=== PATIENT | female | born 1965 | race Caucasian/White ===

== ENCOUNTER 2018-04-04 17:58 | Observation (INO) ==
[2018-04-04] MEDS ORDERED: 0.9 % Sodium Chloride 1,000 ML IVC ONE (18:43)
[2018-04-04] MEDS ORDERED: Ketorolac 15 MG/ML VIAL IVP ONE (18:47)
--- NOTE | 2018-04-04 19:00 | Emergency Department Note ---
START Narrative - START START: 52-year-old female presents emergency Department with concerns of generalized malaise, cough, shortness of breath, fever and chest pain over the past couple days. Patient is concerned that her [id number] sick in the ICU with pneumonia. Patient reports generalized malaise, denies diarrhea, hematuria, hematochezia. Patient is tachycardic on the initial evaluation. We will obtain chest x-ray, laboratory evaluation and urinalysis. Patient care transferred to Dr. Rice pending further evaluation.
[2018-04-04] MEDS ORDERED: Ipratropium/Albuterol Neb 3 ML IH ONE (19:25)
[2018-04-04] MEDS ORDERED: Ipratropium/Albuterol Neb 3 ML ONE (19:26)
[2018-04-04 19:32] LABS: Bilirubin,Urine Negative (Negative); Blood,Urine Negative (Negative); Clarity,Urine Clear (Clear); Color,Urine Yellow (Yellow); Glucose,Urine (UA) Normal (Normal); Ketones,Urine Negative (Negative); Leukocyte Esterase,Urine Small (Negative); Nitrite,Urine Negative (Negative); Protein,Urine Negative (Neg-Trace); Specific Gravity,Urine < 1.005 (1.010-1.025); Urobilinogen,Urine Normal (Normal)
[2018-04-04 19:34] LABS: Bacteria,Urine None Seen per hpf (None-Few); Hyaline Casts,Urine None Seen per lpf (None-Few); Squamous Epithelial Cell,Urine Many per lpf (None-Few)
[2018-04-04 19:36] LABS: Basophils % 0.4 %; Eosinophils % 0.4 %; Hematocrit 34.9 % (35.3-44.9); Hemoglobin 11.4 g/dL (11.5-15.4); Immature Granulocytes % 0.3 % (0-4); Lymphocytes # 2.1 K/mcL (0.6-4.6); Mean Corpuscular HGB Conc 32.7 g/dL (31.6-35.5); Mean Corpuscular Hemoglobin 25.3 pg (28.0-33.3); Mean Corpuscular Volume 77.4 fL (83.0-100.0); Mean Platelet Volume 8.7 fL (9.4-12.4); Monocytes # 0.8 K/mcL (0.0-1.3); Monocytes % 8.3 %; Neutrophils # 6.8 K/mcL (1.6-8.9); Platelet Count 308 K/mcL (140-400); Red Blood Count 4.51 M/mcL (3.82-4.97); Red Cell Distribution Width 15.2 % (11.5-14.5); Segmented Neutrophils % 69.6 %
--- NOTE | 2018-04-04 19:45 | Emergency Department Note ---
Disposition Clinical Impression: Chest pain Qualifiers: Chest pain type: unspecified Qualified Code(s): R07.9 - Chest pain, unspecified Dyspnea Qualifiers: Dyspnea type: dyspnea on exertion Qualified Code(s): R06.09 - Other forms of dyspnea Disposition: Admitted As Inpatient Condition: Fair Referrals: NONE,PCP [Primary Care Provider] - Kaur Irving, SENIOR HEALTH CONSULTANT [Family Provider] - Forms: ED Satisfaction Letter, Work/School Release Time of Disposition: 00:09 Chest Pain HPI - General Chief Complaint: ED General Medical Stated Complaint: "Feels really bad" x4 days Time Seen by Provider: 04/04/18 18:08 Source: patient Limitations: no limitations Vital Signs Reviewed: Yes Nursing Notes Reviewed: Yes - History of Present Illness HPI Narrative: Patient is a 52-year-old female who presents to [facility] ED with a chief complaint of chest pain. States her symptoms started 4 days ago. States it is a sharp stabbing pain in the left side of her chest. She is also short of breath with this and complains of some mild wheezing. States she has been around her [id number] who has been sick with pneumonia. Denies any nausea, vomiting, abdominal pain, problems with urination or bowel movements. States she has had subjective fevers. States her chest pain and difficulty breathing are worse with exertion. Pt complaint: chest pain Onset (ago): day(s) (4) Pain Location: left chest Severity: moderate Severity scale (1-10): 8 Quality: tightness Pain Radiation: none Improves with: nothing Worsens with: exertion Associated symptoms: Reports: nausea, dyspnea. Denies: vomiting Treatments prior to arrival chest pain: none - Related Data Home Medications Medication Instructions Recorded Confirmed Cetirizine HCl [Zyrtec] 10 mg PO DAILY 04/04/18 04/04/18 Citalopram [CeleXA] 20 mg PO DAILY 04/04/18 04/04/18 Naproxen [Naprosyn] 500 mg PO BID 04/04/18 04/04/18 Omeprazole [PriLOSEC] 20 mg PO DAILY 04/04/18 04/04/18 Allergies Allergy/AdvReac Type Severity Reaction Status Date / Time acetaminophen [From Percocet] Allergy Nausea Verified 12/15/17 14:35 codeine Allergy Rash Verified 12/15/17 14:35 doxycycline Allergy Rash Verified 12/15/17 14:35 hydrocodone [From Vicodin] Allergy Nausea Verified 12/15/17 14:35 Oxycodone [From Percocet] Allergy Nausea Verified 12/15/17 14:35 Penicillins [PCN] Allergy Rash Verified 12/15/17 14:35 prednisone Allergy Hives Verified 12/15/17 14:35 red dye Allergy Redness of Verified 12/15/17 14:35 Skin Sulfa (Sulfonamide Allergy Rash Verified 12/15/17 14:35 Antibiotics) Iodinated Contrast- Oral and AdvReac Unconscious Verified 04/04/18 22:03 IV Dye All systems ED: reviewed and negative except as stated. Chest Pain PMH - Past Medical History Medical history: Reports: asthma, other Psychiatric history: Reports: anxiety FINISH SPECIALIST history: Reports: no FINISH SPECIALIST history - Social History Smoking Status: Never smoker Alcohol use: Reports: none Drug use: Reports: none Physical Exam - General Limitations: no limitations General appearance: alert, in no apparent distress - Head Head exam: atraumatic, normocephalic, normal inspection - Eye Eye exam: Present: EOMI - ENT ENT exam: normal exam, normal oropharynx, mucous membranes moist - Neck Neck exam: Present: normal inspection, full ROM, trachea midline - Chest Chest inspection: Present: normal inspection, symmetric chest wall rise - Respiratory Respiratory exam: Present: normal lung sounds bilaterally - Cardiovascular Cardiovascular exam: Present: normal rhythm, tachycardia - Abdominal Exam Abdominal exam: Present: soft, Non-Tender. Absent: tenderness, distention, guarding, rebound, rigidity - Extremities Exam Extremities exam: Present: normal inspection, full ROM. Absent: tenderness, pedal edema - Neurological Exam Neurological exam: Present: alert, oriented X3 - Psychiatric Psychiatric exam: Present: normal affect, normal mood - Skin Skin exam: Present: warm, dry, intact, normal color Course Course Narrative: Patient seen and examined. Chest pain for the last several days. Cardiopulmonary workup was ordered by the day team. D-dimer level was added since she seemed to have some degree of pleuritic chest pain. She had a mild wheeze in the left upper chest. DuoNeb ordered to see if this would help relieve her chest tightness. - Reevaluation(s) Reevaluation #1: Patient had no relief with the DuoNeb. Patient's lab work showed an elevated d-dimer. A CTA of the chest was initially ordered, however patient had an allergy to IV dye in the past where she became unresponsive even with premedication. Decision was made to cancel this and do a VQ scan instead. VQ scan resulted which showed low probability for home and her embolus. Aspirin and nitroglycerin ordered. We will admit for chest pain, ACS workup. I discussed with the hospitalist Dr. Reyes who has accepted patient for admission. Time: 00:04 Reevaluation #2: With patient's continued chest pain despite nitroglycerin, decision was made to give a dose of morphine. Time: 00:09 Vital Signs Temperature 99.4 F 04/04/18 18:02 Pulse Rate 115 04/04/18 18:02 Respiratory Rate 20 04/04/18 18:02 Blood Pressure 125/82 04/04/18 18:02 O2 Sat by Pulse Oximetry 93 04/04/18 18:02 Temperature 99.4 F 04/04/18 18:14 Pulse Rate 95 04/05/18 00:02 Respiratory Rate 20 04/05/18 00:02 Blood Pressure 122/81 04/05/18 00:02 O2 Sat by Pulse Oximetry 95 04/05/18 00:02 Oxygen Delivery Oxygen Delivery Nasal Cannula Chest Pain - Medical Records Medical records reviewed: Yes I reviewed the patient's medical records. - Lab Data Lab results reviewed: Yes I reviewed the patient's lab results. Result diagrams: 04/04/18 18:43 04/04/18 18:43 Lab Results 04/04/18 04/04/18 04/04/18 Range/Units 18:43 18:43 19:05 WBC 9.8 (4.3-11.1) K/mcL RBC 4.51 (3.82-4.97) M/mcL Hgb 11.4 L (11.5-15.4) g/dL Hct 34.9 L (35.3-44.9) % MCV 77.4 L (83.0-100.0) fL MCH 25.3 L (28.0-33.3) pg MCHC 32.7 (31.6-35.5) g/dL RDW 15.2 H (11.5-14.5) % Plt Count 308 (140-400) K/mcL MPV 8.7 L (9.4-12.4) fL Immature Gran % 0.3 (0-4) % Seg Neutrophils % 69.6 % Lymphocytes % 21.0 % Monocytes % 8.3 % Eosinophils % 0.4 % Basophils % 0.4 % Neutrophils # 6.8 (1.6-8.9) K/mcL Lymphocytes # 2.1 (0.6-4.6) K/mcL Monocytes # 0.8 (0.0-1.3) K/mcL Eosinophils # 0.0 (0.0-0.6) K/mcL Basophils # 0.0 (0.0-0.2) K/mcL D-Dimer (0-500) ng/mLFEU Sodium 136 (136-145) mEq/L Potassium 3.5 (3.5-5.1) mEq/L Chloride 101 (98-107) mEq/L Carbon Dioxide 27 (23-29) mEq/L BUN 11 (6-20) mg/dL Creatinine 0.64 (0.60-1.20) mg/dL Est GFR ( Amer) > 60 (> 60) Est GFR (Non-Af Amer) > 60 (> 60) BUN/Creatinine Ratio 17 (6-26) Glucose 114 H (70-105) mg/dL Calculated Osmolality 282 (280-300) Calcium 9.0 (8.6-10.3) mg/dL Total Bilirubin 0.6 (0.3-1.0) mg/dL Direct Bilirubin 0.1 (0.0-0.2) mg/dL Indirect Bilirubin 0.5 (0.0-1.2) mg/dL AST 16 (13-39) Units/L ALT 10 (7-52) Units/L Alkaline Phosphatase 91 (34-104) Units/L Troponin I < 0.03 (< 0.04) ng/mL Serum Total Protein 7.9 (6.4-8.9) g/dL Albumin 3.5 (3.5-5.7) g/dL Globulin 4.4 H (2.4-3.5) g/dL Albumin/Globulin Ratio 0.8 L (1.1-2.2) Urine Color Yellow (Yellow) Urine Clarity Clear (Clear) Urine pH 7.0 (5.0-8.0) pH Units Ur Specific [place] < 1.005 L (1.010-1.025) Urine Protein Negative (Neg-Trace) mg/dL Urine Glucose (UA) Normal (Normal) mg/dL Urine Ketones Negative (Negative) mg/dL Urine Blood Negative (Negative) Urine Nitrite Negative (Negative) Urine Bilirubin Negative (Negative) Urine Urobilinogen Normal (Normal) mg/dL Ur Leukocyte Esterase Small H (Negative) Urine Microscopic RBC 3-5 H (0-3) per hpf Urine Microscopic WBC 3-5 H (0-3) per hpf Ur Squamous Epith Cells Many H (None-Few) per lpf Urine Bacteria None Seen (None-Few) per hpf Hyaline Casts None Seen (None-Few) per lpf Ur Culture Indicated? NO. A (NO) 04/04/18 Range/Units 19:16 WBC (4.3-11.1) K/mcL RBC (3.82-4.97) M/mcL Hgb (11.5-15.4) g/dL Hct (35.3-44.9) % MCV (83.0-100.0) fL MCH (28.0-33.3) pg MCHC (31.6-35.5) g/dL RDW (11.5-14.5) % Plt Count (140-400) K/mcL MPV (9.4-12.4) fL Immature Gran % (0-4) % Seg Neutrophils % % Lymphocytes % % Monocytes % % Eosinophils % % Basophils % % Neutrophils # (1.6-8.9) K/mcL Lymphocytes # (0.6-4.6) K/mcL Monocytes # (0.0-1.3) K/mcL Eosinophils # (0.0-0.6) K/mcL Basophils # (0.0-0.2) K/mcL D-Dimer 1289 H (0-500) ng/mLFEU Sodium (136-145) mEq/L Potassium (3.5-5.1) mEq/L Chloride (98-107) mEq/L Carbon Dioxide (23-29) mEq/L BUN (6-20) mg/dL Creatinine (0.60-1.20) mg/dL Est GFR ( Amer) (> 60) Est GFR (Non-Af Amer) (> 60) BUN/Creatinine Ratio (6-26) Glucose (70-105) mg/dL Calculated Osmolality (280-300) Calcium (8.6-10.3) mg/dL Total Bilirubin (0.3-1.0) mg/dL Direct Bilirubin (0.0-0.2) mg/dL Indirect Bilirubin (0.0-1.2) mg/dL AST (13-39) Units/L ALT (7-52) Units/L Alkaline Phosphatase (34-104) Units/L Troponin I (< 0.04) ng/mL Serum Total Protein (6.4-8.9) g/dL Albumin (3.5-5.7) g/dL Globulin (2.4-3.5) g/dL Albumin/Globulin Ratio (1.1-2.2) Urine Color (Yellow) Urine Clarity (Clear) Urine pH (5.0-8.0) pH Units Ur Specific [place] (1.010-1.025) Urine Protein (Neg-Trace) mg/dL Urine Glucose (UA) (Normal) mg/dL Urine Ketones (Negative) mg/dL Urine Blood (Negative) Urine Nitrite (Negative) Urine Bilirubin (Negative) Urine Urobilinogen (Normal) mg/dL Ur Leukocyte Esterase (Negative) Urine Microscopic RBC (0-3) per hpf Urine Microscopic WBC (0-3) per hpf Ur Squamous Epith Cells (None-Few) per lpf Urine Bacteria (None-Few) per hpf Hyaline Casts (None-Few) per lpf Ur Culture Indicated? (NO) - Radiology Data Radiology results reviewed: Yes I reviewed the patient's radiology results. Chest X-Ray 04/04/18 18:47 IMPRESSION: No evidence for acute cardiopulmonary process. D/ / Mello Anne MD / Mello Anne MD Interpreting Provider: Mello Anne MD Pulmonary Perfusion Imaging 04/04/18 21:47 IMPRESSION: Low probability for pulmonary embolus. D/ / Jose Mir MD / Jose Mir MD Interpreting Provider: Jose Mir MD - EKG Data EKG attestation: Yes I reviewed and interpreted this EKG. EKG results narrative: EKG done at 1832 shows sinus tachycardia with a rate of [address] elevation or depression. Normal axis. Q waves noted in lead 3. No prior EKG for comparison. Heart Score - Score History: Moderately Suspicious EKG: Non Specific repolarisation Disturbance Age: 45-65 Risk Factors: No risk factors known Troponin: Less than normal limit HEART Score Total: 3 Attestation Statement - Attestation Attestation: I, Ronni Rice DO, examined this patient [id number] and my medical decision-making was reviewed with Dr. Caridad Styles , Resident Physician. I agree with the documented findings, disposition and treatment plan as described except to the extent set forth below. Please see my progress notes for details.
[2018-04-04 19:50] LABS: Troponin I < 0.03 ng/mL (< 0.04)
[2018-04-04 19:53] LABS: Alanine Aminotransferase 10 Units/L (7-52); Albumin 3.5 g/dL (3.5-5.7); Albumin/Globulin Ratio 0.8 (1.1-2.2); Alkaline Phosphatase 91 Units/L (34-104); Aspartate Amino Transferase 16 Units/L (13-39); BUN/Creatinine Ratio 17 (6-26); Bilirubin,Direct 0.1 mg/dL (0.0-0.2); Bilirubin,Indirect 0.5 mg/dL (0.0-1.2); Bilirubin,Total 0.6 mg/dL (0.3-1.0); Blood Urea Nitrogen 11 mg/dL (6-20); Carbon Dioxide 27 mEq/L (23-29); Chloride 101 mEq/L (98-107); Globulin 4.4 g/dL (2.4-3.5); Glucose 114 mg/dL (70-105); Osmolality,Calculated 282 (280-300); Potassium 3.5 mEq/L (3.5-5.1); Sodium 136 mEq/L (136-145); Total Protein 7.9 g/dL (6.4-8.9); eGFR For Non-African Americans > 60 (> 60)
--- NOTE | 2018-04-04 20:14 | Emergency Department Note ---
Disposition Clinical Impression: Chest pain Qualifiers: Chest pain type: unspecified Qualified Code(s): R07.9 - Chest pain, unspecified Dyspnea Qualifiers: Dyspnea type: dyspnea on exertion Qualified Code(s): R06.09 - Other forms of dyspnea Disposition: Admitted As Inpatient Condition: Fair Time of Disposition: 01:31 General Adult HPI - General Chief complaint: ED General Medical Stated complaint: "Feels really bad" x4 days Time Seen by Provider: 04/04/18 18:08 Source: patient Limitations: no limitations - History of Present Illness Pain Scale: 8 - Related Data Home Medications Medication Instructions Recorded Confirmed Cetirizine HCl [Zyrtec] 10 mg PO DAILY 04/04/18 04/04/18 Citalopram [CeleXA] 20 mg PO DAILY 04/04/18 04/04/18 Naproxen [Naprosyn] 500 mg PO BID 04/04/18 04/04/18 Omeprazole [PriLOSEC] 20 mg PO DAILY 04/04/18 04/04/18 Allergies Allergy/AdvReac Type Severity Reaction Status Date / Time acetaminophen [From Percocet] Allergy Nausea Verified 12/15/17 14:35 codeine Allergy Rash Verified 12/15/17 14:35 doxycycline Allergy Rash Verified 12/15/17 14:35 hydrocodone [From Vicodin] Allergy Nausea Verified 12/15/17 14:35 Oxycodone [From Percocet] Allergy Nausea Verified 12/15/17 14:35 Penicillins [PCN] Allergy Rash Verified 12/15/17 14:35 prednisone Allergy Hives Verified 12/15/17 14:35 red dye Allergy Redness of Verified 12/15/17 14:35 Skin Sulfa (Sulfonamide Allergy Rash Verified 12/15/17 14:35 Antibiotics) Iodinated Contrast- Oral and AdvReac Unconscious Verified 04/04/18 22:03 IV Dye Past Medical History - Past Medical History Medical history: Reports: asthma, other Psychiatric history: Reports: anxiety BRANCH MECHANIC history: Reports: no BRANCH MECHANIC history - Social History Smoking Status: Never smoker Smokeless Tobacco Status: No Alcohol use: Reports: none Drug use: Reports: none Physical Exam - General Limitations: no limitations General appearance: alert, in no apparent distress Course Vital Signs Temperature 99.4 F 04/04/18 18:02 Pulse Rate 115 04/04/18 18:02 Respiratory Rate 20 04/04/18 18:02 Blood Pressure 125/82 04/04/18 18:02 O2 Sat by Pulse Oximetry 93 04/04/18 18:02 Temperature 99.6 F 04/05/18 01:08 Pulse Rate 89 04/05/18 01:08 Respiratory Rate 20 04/05/18 01:08 Blood Pressure 120/75 04/05/18 01:08 O2 Sat by Pulse Oximetry 94 04/05/18 01:08 Oxygen Delivery Oxygen Delivery Nasal Cannula Medical Decision Making - Lab Data Result diagrams: 04/04/18 18:43 04/04/18 18:43 Lab Results 04/04/18 04/04/18 04/04/18 Range/Units 18:43 18:43 19:05 WBC 9.8 (4.3-11.1) K/mcL RBC 4.51 (3.82-4.97) M/mcL Hgb 11.4 L (11.5-15.4) g/dL Hct 34.9 L (35.3-44.9) % MCV 77.4 L (83.0-100.0) fL MCH 25.3 L (28.0-33.3) pg MCHC 32.7 (31.6-35.5) g/dL RDW 15.2 H (11.5-14.5) % Plt Count 308 (140-400) K/mcL MPV 8.7 L (9.4-12.4) fL Immature Gran % 0.3 (0-4) % Seg Neutrophils % 69.6 % Lymphocytes % 21.0 % Monocytes % 8.3 % Eosinophils % 0.4 % Basophils % 0.4 % Neutrophils # 6.8 (1.6-8.9) K/mcL Lymphocytes # 2.1 (0.6-4.6) K/mcL Monocytes # 0.8 (0.0-1.3) K/mcL Eosinophils # 0.0 (0.0-0.6) K/mcL Basophils # 0.0 (0.0-0.2) K/mcL D-Dimer (0-500) ng/mLFEU Sodium 136 (136-145) mEq/L Potassium 3.5 (3.5-5.1) mEq/L Chloride 101 (98-107) mEq/L Carbon Dioxide 27 (23-29) mEq/L BUN 11 (6-20) mg/dL Creatinine 0.64 (0.60-1.20) mg/dL Est GFR ( Amer) > 60 (> 60) Est GFR (Non-Af Amer) > 60 (> 60) BUN/Creatinine Ratio 17 (6-26) Glucose 114 H (70-105) mg/dL Calculated Osmolality 282 (280-300) Calcium 9.0 (8.6-10.3) mg/dL Total Bilirubin 0.6 (0.3-1.0) mg/dL Direct Bilirubin 0.1 (0.0-0.2) mg/dL Indirect Bilirubin 0.5 (0.0-1.2) mg/dL AST 16 (13-39) Units/L ALT 10 (7-52) Units/L Alkaline Phosphatase 91 (34-104) Units/L Troponin I < 0.03 (< 0.04) ng/mL Serum Total Protein 7.9 (6.4-8.9) g/dL Albumin 3.5 (3.5-5.7) g/dL Globulin 4.4 H (2.4-3.5) g/dL Albumin/Globulin Ratio 0.8 L (1.1-2.2) Urine Color Yellow (Yellow) Urine Clarity Clear (Clear) Urine pH 7.0 (5.0-8.0) pH Units Ur Specific [place] < 1.005 L (1.010-1.025) Urine Protein Negative (Neg-Trace) mg/dL Urine Glucose (UA) Normal (Normal) mg/dL Urine Ketones Negative (Negative) mg/dL Urine Blood Negative (Negative) Urine Nitrite Negative (Negative) Urine Bilirubin Negative (Negative) Urine Urobilinogen Normal (Normal) mg/dL Ur Leukocyte Esterase Small H (Negative) Urine Microscopic RBC 3-5 H (0-3) per hpf Urine Microscopic WBC 3-5 H (0-3) per hpf Ur Squamous Epith Cells Many H (None-Few) per lpf Urine Bacteria None Seen (None-Few) per hpf Hyaline Casts None Seen (None-Few) per lpf Ur Culture Indicated? NO. A (NO) 04/04/18 Range/Units 19:16 WBC (4.3-11.1) K/mcL RBC (3.82-4.97) M/mcL Hgb (11.5-15.4) g/dL Hct (35.3-44.9) % MCV (83.0-100.0) fL MCH (28.0-33.3) pg MCHC (31.6-35.5) g/dL RDW (11.5-14.5) % Plt Count (140-400) K/mcL MPV (9.4-12.4) fL Immature Gran % (0-4) % Seg Neutrophils % % Lymphocytes % % Monocytes % % Eosinophils % % Basophils % % Neutrophils # (1.6-8.9) K/mcL Lymphocytes # (0.6-4.6) K/mcL Monocytes # (0.0-1.3) K/mcL Eosinophils # (0.0-0.6) K/mcL Basophils # (0.0-0.2) K/mcL D-Dimer 1289 H (0-500) ng/mLFEU Sodium (136-145) mEq/L Potassium (3.5-5.1) mEq/L Chloride (98-107) mEq/L Carbon Dioxide (23-29) mEq/L BUN (6-20) mg/dL Creatinine (0.60-1.20) mg/dL Est GFR ( Amer) (> 60) Est GFR (Non-Af Amer) (> 60) BUN/Creatinine Ratio (6-26) Glucose (70-105) mg/dL Calculated Osmolality (280-300) Calcium (8.6-10.3) mg/dL Total Bilirubin (0.3-1.0) mg/dL Direct Bilirubin (0.0-0.2) mg/dL Indirect Bilirubin (0.0-1.2) mg/dL AST (13-39) Units/L ALT (7-52) Units/L Alkaline Phosphatase (34-104) Units/L Troponin I (< 0.04) ng/mL Serum Total Protein (6.4-8.9) g/dL Albumin (3.5-5.7) g/dL Globulin (2.4-3.5) g/dL Albumin/Globulin Ratio (1.1-2.2) Urine Color (Yellow) Urine Clarity (Clear) Urine pH (5.0-8.0) pH Units Ur Specific [place] (1.010-1.025) Urine Protein (Neg-Trace) mg/dL Urine Glucose (UA) (Normal) mg/dL Urine Ketones (Negative) mg/dL Urine Blood (Negative) Urine Nitrite (Negative) Urine Bilirubin (Negative) Urine Urobilinogen (Normal) mg/dL Ur Leukocyte Esterase (Negative) Urine Microscopic RBC (0-3) per hpf Urine Microscopic WBC (0-3) per hpf Ur Squamous Epith Cells (None-Few) per lpf Urine Bacteria (None-Few) per hpf Hyaline Casts (None-Few) per lpf Ur Culture Indicated? (NO) Attestation Statement - Attestation Attestation: I, Ronni Rice DO, examined this patient [id number] and my medical decision-making was reviewed with Caridad Styles DO , Resident Physician. I agree with the documented findings, disposition and treatment plan as described except to the extent set forth below. Please see my progress notes for details. 52-year-old female presents emergency room with chest tightness and difficulty breathing over the last 4 days. Patient has no specific cardiac history. Vital signs on presentation were stable. Patient has a history of asthma but does not have any described productive cough or fevers. Currently she is denying headache vision changes nausea vomiting or diarrhea fevers or chills. Her main complaint is chest tightness shortness of breath and intermittent pain with deep inspiration. Patient denies any history of blood clots dissection or aneurysm. She has not fallen or injured herself. She has not been on antibiotics recently. Patient is concerning for cardiac etiology versus pulmonary source this time. Chest x-ray is unremarkable this was ordered and collected by the previous physicians. Patient also had screening labs including EKG troponin resulted in those were negative as well. Breathing treatments ordered by our nighttime physician and then a d-dimer will be added on. Patient will most every required admission secondary to cardiac versus pulmonary concerns no specific history. Patient has not had a stress test or echo performed within the last several years. She does not have any other risk factors outside of what she describes as possible hypertension but no hyperlipidemia or diabetes. Disposition pending full workup and treatment course. Patient otherwise clinically stable. We will continue to monitor here in emergency room until admission process is completed. See detailed documentation the physical exam, medical intervention, medical decision-making and disposition the resident physician's note. 2044 Patient's d-dimer is elevated. Initial heart rate was 1:15. CT angiography will be completed to address any other potential pulmonary etiology. Patient was informed. Patient did have a contrast allergy which mandated VQ scan at this time. Admission process will be completed once the imaging modality is resulted. 2300 VQ scan is low probability for pulmonary emboli. Nitroglycerin did not help with the pain. Pain medication was given. Patient will be admitted for ACS rule out versus cardiopulmonary evaluation for possible pleuritic nature to the presentation. She has had symptoms for almost 48+ hours at this time and her troponin is negative so the idea cardiac ischemia is low on the differential at this point. We will admit the patient for definitive management. The hospitalist was contacted no other recommendations or concerns were noted. Patient has been admitted for definitive management. Patient left without any complications or medical issues this time.
[2018-04-04] MEDS ORDERED: Isovue-370 500 ML INFUS..BTL IV ONE (20:40)
[2018-04-04] MEDS ORDERED: Aspirin 325 MG TABLET PO ONE (23:44)
[2018-04-04] MEDS: Nitroglycerin 0.4 MG TAB.SUBL SL PRN (23:55)
[2018-04-05] MEDS: Nitroglycerin 0.4 MG TAB.SUBL SL PRN (00:03)
[2018-04-05] MEDS ORDERED: *HR* Morphine 2 MG/ML SYRINGE IVP ONE (00:05)
[2018-04-05] MEDS ORDERED: Ondansetron 4 MG/2 ML VIAL IVP ONE (00:06)
--- NOTE | 2018-04-05 01:54 | Internal Med History&Physical ---
Date of Encounter: 04/05/18 Time of Encounter: 01:45 Internal Medicine - H&P: HPI Chief complaint: chest pain Admitted From: Home Plans for Post Hospital Care: Home History of present illness: Ms. Kilpatrick is a 52 year old woman who reports a past medical history of asthma alone presenting to the ER who the complaint of left sided chest pain pain for which in the ER she was evaluated, given multiple analgesics with relief only after 4mg of morphine, and seen to have an elevated d-dimer for which reason a VQ scan was ordered given a reported allergy to contrast. This was not suggestive of acute PE.She was admitted for further observation. On my assessment, she is seen laying comfortably in bed. She denies any other comorbidities other than asthma and reports taking citalopram for depression and anxiety. She also reports a chronic pain syndrome due to arthritis. She states that 4 days ago she had started having generalized aches and pains, feeling feverish with some chills and a dry cough and sore throat. She also had left-sided chest tenderness at the time however it persisted over the course of days with highest severity yesterday fo which reason she sought medical attention. She notes that the pain was worsened with deep breathing. She denies abdominal pain, nausea and vomiting. She does not smoke or use illicit drugs. She denies a history of hypertension, diabetes, vascular disease and hyperlipidemia. Past Med Surg Social Fam HX - Past Medical History Medical history: asthma, other Additional medical history: chronic back pain, IBS. Psychiatric history: anxiety - Past Surgical History Surgical History: , cholecystectomy, hysterectomy, orthopedic, other Additional surgical history: ganglian cyst removal - Social History Smoking Status: Never smoker Smokeless Tobacco Status: No Alcohol use: none Drug use: none Internal Medicine - H&P: Meds Cetirizine HCl [Zyrtec] 10 mg PO DAILY 04/04/18 [History] Citalopram [CeleXA] 20 mg PO DAILY 04/04/18 [History] Naproxen [Naprosyn] 500 mg PO BID 04/04/18 [History] Omeprazole [PriLOSEC] 20 mg PO DAILY 04/04/18 [History] 3 Allergy/AdvReac Type Severity Reaction Status Date / Time acetaminophen [From Percocet] Allergy Nausea Verified 12/15/17 14:35 codeine Allergy Rash Verified 12/15/17 14:35 doxycycline Allergy Rash Verified 12/15/17 14:35 hydrocodone [From Vicodin] Allergy Nausea Verified 12/15/17 14:35 Oxycodone [From Percocet] Allergy Nausea Verified 12/15/17 14:35 Penicillins [PCN] Allergy Rash Verified 12/15/17 14:35 prednisone Allergy Hives Verified 12/15/17 14:35 red dye Allergy Redness of Verified 12/15/17 14:35 Skin Sulfa (Sulfonamide Allergy Rash Verified 12/15/17 14:35 Antibiotics) Iodinated Contrast- Oral and AdvReac Unconscious Verified 04/04/18 22:03 IV Dye All Systems PM: A 10-system review of systems was performed and is negative for pertinent findings except as documented above in the HPI. - Constitutional Vitals: Temp Pulse Resp BP Pulse Ox 99.6 F 89 20 120/75 94 04/05/18 01:08 04/05/18 01:08 04/05/18 01:08 04/05/18 01:08 04/05/18 01:08 Exam: Vitals: Reviewed General: Well-developed female lying comfortably in bed in no acute distress Skin: No ulcers or lesions. HEENT: Moist mucous membranes. No conjunctivae pallor. Neck: No lymphadenopathy. No JVD. No carotid bruits. No palpable thyroid. Chest: Normal thoracic expansion. Reproducible tenderness on palpation of her left anterior rib cage close to her sternum. Normal breath sounds. Clear to auscultation. Heart: Normal S1 & S2; rhythmic. No rubs or murmurs. Abdomen: Non-distended, soft and non-tender to palpation. No peritoneal reaction. Liver is normal in size. Spleen is not palpable. Extremities: No clubbing, cyanosis or edema. No calf tenderness. Normal distal pulses. Neurological: Awake, alert and oriented to person, place and time. No focal deficits. Psych: Affect appropriate. Internal Med - H&P Results - Labs CBC & Chem 7: 04/04/18 18:43 04/04/18 18:43 - Assessment and plan (1) Chest pain Current Visit: Yes Status: Acute Assessment and plan: The patient has a HEART score of 1 based on her age. She has no other risk factors, pain has been preent for 4 days which seems to have been part of a viral syndrome now having focused reproducible tenderness on palpation. Her EKG shows no signs suggestive of ischemia. This atypical chest pain is likely secondary to costochondritis based on these findings. -Will place on NSAIDs. -Monitor overnight and can be discharged in the morning with pain relief. -Should follow up with her PCP as an outpatient. Qualifiers: Chest pain type: intercostal pain Qualified Code(s): R07.82 - Intercostal pain (2) Asthma Current Visit: Yes Status: Chronic Assessment and plan: No signs of acute exacerbation at this time. Albuterol prn ordered. Qualifiers: Asthma severity: mild Asthma persistence: intermittent Asthma complication type: uncomplicated Qualified Code(s): J45.20 - Mild intermittent asthma, uncomplicated (3) Depression Current Visit: Yes Status: Chronic Assessment and plan: Appears stable. Will continue citalopram daily. Qualifiers: Depression Type: unspecified Qualified Code(s): F32.9 - Major depressive disorder, single episode, unspecified (4) Obesity (BMI 30.0-34.9) Current Visit: Yes Status: Chronic Assessment and plan: Education on therapeutic lifestyle changes given. (5) D-dimer, elevated Current Visit: Yes Status: Acute Assessment and plan: Unclear why it is elevated. PE has been ruled out based on the VQ scan findings. No clinical signs to suggest LE DVT. It is not a specific test and could be elevated for other reasons. (6) Anemia Current Visit: Yes Status: Chronic Assessment and plan: Seen to have a low MCV and MCH which is suggestive of iron deficiency. She reports no evidence of landry bleeding. -Will send iron studies. -Should have outpatient for screening colonoscopy if not already done based on her age. Qualifiers: Anemia type: unspecified type Qualified Code(s): D64.9 - Anemia, unspecified (7) DVT prophylaxis Current Visit: Yes Status: Acute Assessment and plan: Heparin SubQ ordered. - Time Spent With Patient Total time spent is greater than 50% in coordination of care (as documented) at patient's floor/unit and/or counseling patient: 25 - 35 minutes
[2018-04-05] MEDS: *HR* Heparin 5,000 UNIT/ML VIAL SQ SCH ×2 (05:01→17:12)
[2018-04-05 05:25] LABS: Immature Reticulocyte % 9.1 % (11.0-38.0); Retculocyte # 0.05 M/mcL (0.05-0.10); Reticulocyte % 1.1 % (1.6-2.8)
[2018-04-05 05:46] LABS: Troponin I < 0.03 ng/mL (< 0.04)
[2018-04-05 06:07] LABS: Ferritin 204 ng/mL (10-120); Iron < 10 mcg/dL (50-170); Transferrin 163 mg/dL (203-362)
[2018-04-05] MEDS: Loratadine 10 MG TABLET PO SCH (08:13)
--- NOTE | 2018-04-05 11:24 | Internal Med Progress Note ---
Hospitalist Progress Note - Encounter Date of Encounter: 04/05/18 Time of Encounter: 11:23 - Subjective Interval History: She has seen and examined at bedside. Patient expresses that she feels very weak. She is requiring oxygen supplementation at 2 L nasal cannula. Normally she is now any oxygen at home. She does have a cough with no sputum production she denies any weight gain or weight loss or swelling. - Exam Vitals: Temp Pulse Resp BP Pulse Ox 99.8 F H 97 15 113/73 91 04/05/18 06:36 04/05/18 06:36 04/05/18 06:36 04/05/18 06:36 04/05/18 06:36 Exam: Constitutional Constitutional: weight loss (reported 30 pound lose since last year), no chills , no fever(s), no night sweats - EENT Eyes: no change in vision, no discharge, no pain, no photophobia Ears: no ear discharge, no ear pain, no tinnitus Nose, mouth and throat: no dysphagia, no nasal discharge, no neck pain, no sore throat - Cardiovascular Cardiovascular ROS IM: no chest pain, no diaphoresis, no dyspnea, no lightheadedness, no palpitations, no syncope - Respiratory Respiratory: cough, crackles in the bases bilaterally, no dyspnea, no wheezing , no excessive phlegm production - Gastrointestinal Gastrointestinal: abdominal pain, nausea, vomiting, no diarrhea, no hematemesis , no hematochezia, no melena - Musculoskeletal Musculoskeletal ROS IM: no numbness, no tingling - Integumentary Integumentary IM: no rash, no unusual bruising - Neurological Neurological ROS: no confusion, no convulsions, no focal weakness, no numbness, no tingling, no tremor(s) - Hematologic/Lymphatic Hematologic/Lymphatic: no easy bruising - Assessment and Plan (1) Chest pain Current Visit: Yes Status: Acute Assessment and Plan: The patient has a HEART score of 1 based on her age. She has no other risk factors, pain has been preent for 4 days which seems to have been part of a viral syndrome now having focused reproducible tenderness on palpation. Her EKG shows no signs suggestive of ischemia. This atypical chest pain is likely secondary to costochondritis based on these findings. -Will continue NSAIDs. -Troponins are negative 3 -Patient does have some hypoxia we will check an echo (2) Asthma Current Visit: Yes Status: Chronic Assessment and Plan: No signs of acute exacerbation at this time.-No wheezing noted at this time Albuterol prn ordered. (3) Depression Current Visit: Yes Status: Chronic Assessment and Plan: Appears stable. Will continue citalopram daily. (4) DVT prophylaxis Current Visit: Yes Status: Acute Assessment and Plan: Heparin SubQ ordered. (5) Obesity (BMI 30.0-34.9) Current Visit: Yes Status: Chronic Assessment and Plan: Education on therapeutic lifestyle changes given. (6) D-dimer, elevated Current Visit: Yes Status: Acute Assessment and Plan: Unclear why it is elevated. PE has been ruled out based on the VQ scan findings. No clinical signs to suggest LE DVT. It is not a specific test and could be elevated for other reasons. (7) Anemia Current Visit: Yes Status: Chronic Assessment and Plan: Seen to have a low MCV and MCH which is suggestive of iron deficiency. She reports no evidence of landry bleeding. -Will send iron studies. -Should have outpatient for screening colonoscopy if not already done based on her age. -No bleeding noted (8) Hypoxia Current Visit: Yes Status: Acute Assessment and Plan: Patient requiring oxygen supplementation started dropping to 85% while on room air. She does not normally require oxygen at home We will do a walk test. VQ scan is negative for PE chest x-ray shows no acute process. She does have some crackles in the bases does not appear to be fluid overloaded we will check an echo. Continue with oxygen titrated to maintain SPO2 greater than 92%. We will check a BNP No wheezing noted - Time Spent with Patient Total time spent is greater than 50% in coordination of care (as documented) at patient's floor/unit and/or counseling patient: Internal Medicine: Result - Labs CBC & Chem 7: 04/04/18 18:43 04/04/18 18:43 Labs: Cardiac Enzymes 04/05/18 Range/Units 04:29 Troponin I < 0.03 (< 0.04) ng/mL - ABG Interpretation ABG results: PT/INR, D-dimer D-Dimer 1289 ng/mLFEU (0-500) H 04/04/18 19:16 Consult Discharge Plan - Plan Referrals: NONE,PCP [Primary Care Provider] - Kaur Irving, COMMUNITY ENGAGEMENT SPECIALIST [Family Provider] - (1) Chest pain Qualifiers: Chest pain type: intercostal pain Qualified Code(s): R07.82 - Intercostal pain (2) Asthma Qualifiers: Asthma severity: mild Asthma persistence: intermittent Asthma complication type: uncomplicated Qualified Code(s): J45.20 - Mild intermittent asthma, uncomplicated (3) Depression Qualifiers: Depression Type: unspecified Qualified Code(s): F32.9 - Major depressive disorder, single episode, unspecified (7) Anemia Qualifiers: Anemia type: unspecified type Qualified Code(s): D64.9 - Anemia, unspecified
--- NOTE | 2018-04-05 11:48 | Electrocardiograph Report ---
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
[2018-04-05 13:48] LABS: Basophils % 0.3 %; Eosinophils # 0.2 K/mcL (0.0-0.6); Eosinophils % 2.9 %; Hemoglobin 10.2 g/dL (11.5-15.4); Immature Granulocytes % 0.1 % (0-4); Lymphocytes # 1.6 K/mcL (0.6-4.6); Lymphocytes % 23.5 %; Mean Corpuscular HGB Conc 31.9 g/dL (31.6-35.5); Mean Corpuscular Hemoglobin 24.6 pg (28.0-33.3); Mean Corpuscular Volume 77.3 fL (83.0-100.0); Mean Platelet Volume 8.7 fL (9.4-12.4); Monocytes # 0.8 K/mcL (0.0-1.3); Monocytes % 11.6 %; Neutrophils # 4.3 K/mcL (1.6-8.9); Platelet Count 267 K/mcL (140-400); Red Blood Count 4.14 M/mcL (3.82-4.97); Red Cell Distribution Width 15.6 % (11.5-14.5); Segmented Neutrophils % 61.6 %
[2018-04-05 14:00] LABS: BUN/Creatinine Ratio 16 (6-26); Blood Urea Nitrogen 11 mg/dL (6-20); Calcium 8.8 mg/dL (8.6-10.3); Carbon Dioxide 29 mEq/L (23-29); Chloride 102 mEq/L (98-107); Glucose 137 mg/dL (70-105); Osmolality,Calculated 284 (280-300); Potassium 3.5 mEq/L (3.5-5.1); Sodium 136 mEq/L (136-145); eGFR For Non-African Americans > 60 (> 60)
--- NOTE | 2018-04-05 17:23 | Electrocardiograph Report ---
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
--- NOTE | 2018-04-05 17:24 | Electrocardiograph Report ---
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
[2018-04-06] MEDS: *HR* Heparin 5,000 UNIT/ML VIAL SQ SCH ×2 (05:38→17:05)
[2018-04-06] MEDS: Loratadine 10 MG TABLET PO SCH (09:52)
--- NOTE | 2018-04-06 11:11 | Internal Med Progress Note ---
Hospitalist Progress Note - Encounter Date of Encounter: 04/06/18 Time of Encounter: 11:11 - Subjective Interval History: She has seen and examined at bedside. She feels somewhat better. Cont to depend on 2 L of O2 will attempt to titrate - Exam Vitals: Temp Pulse Resp BP Pulse Ox 97.9 F 76 15 116/78 93 04/06/18 07:12 04/06/18 07:12 04/06/18 07:12 04/06/18 07:12 04/06/18 09:58 Exam: Constitutional Constitutional: weight loss (reported 30 pound lose since last year), no chills , no fever(s), no night sweats - EENT Eyes: no change in vision, no discharge, no pain, no photophobia Ears: no ear discharge, no ear pain, no tinnitus Nose, mouth and throat: no dysphagia, no nasal discharge, no neck pain, no sore throat - Cardiovascular Cardiovascular ROS IM: no chest pain, no diaphoresis, no dyspnea, no lightheadedness, no palpitations, no syncope - Respiratory Respiratory: cough, faint crackles , no dyspnea, no wheezing, no excessive phlegm production - Gastrointestinal Gastrointestinal: abdominal pain, nausea, vomiting, no diarrhea, no hematemesis , no hematochezia, no melena - Musculoskeletal Musculoskeletal ROS IM: no numbness, no tingling - Integumentary Integumentary IM: no rash, no unusual bruising - Neurological Neurological ROS: no confusion, no convulsions, no focal weakness, no numbness, no tingling, no tremor(s) - Hematologic/Lymphatic Hematologic/Lymphatic: no easy bruising - Assessment and Plan (1) Chest pain Current Visit: Yes Status: Acute Assessment and Plan: The patient has a HEART score of 1 based on her age. She has no other risk factors, pain has been preent for 4 days which seems to have been part of a viral syndrome now having focused reproducible tenderness on palpation. Her EKG shows no signs suggestive of ischemia. This atypical chest pain is likely secondary to costochondritis based on these findings. -Will continue NSAIDs. -Troponins are negative 3 -EKG oK (2) Asthma Current Visit: Yes Status: Chronic Assessment and Plan: Lung sounds with faint crackles very faint wheeze Albuterol prn ordered. Has been hypoxic maybe asthma flair will try steroid She is allergic to prednisone- discussed with pharmacy will try low dose decadron (3) Depression Current Visit: Yes Status: Chronic Assessment and Plan: Appears stable. Will continue citalopram daily. (4) DVT prophylaxis Current Visit: Yes Status: Acute Assessment and Plan: Heparin SubQ ordered. (5) Obesity (BMI 30.0-34.9) Current Visit: Yes Status: Chronic Assessment and Plan: Education on therapeutic lifestyle changes given. (6) D-dimer, elevated Current Visit: Yes Status: Acute Assessment and Plan: Unclear why it is elevated. PE has been ruled out based on the VQ scan findings. No clinical signs to suggest LE DVT. It is not a specific test and could be elevated for other reasons. (7) Anemia Current Visit: Yes Status: Chronic Assessment and Plan: Seen to have a low MCV and MCH which is suggestive of iron deficiency. She reports no evidence of landry bleeding- will cont to monitor -Should have outpatient for screening colonoscopy if not already done based on her age. -No bleeding noted (8) Hypoxia Current Visit: Yes Status: Acute Assessment and Plan: Patient requiring oxygen supplementation started dropping to 85% while on room air. She does not normally require oxygen at home We will do a walk test. VQ scan is negative for PE chest x-ray shows no acute process. She does have some crackles in the bases does not appear to be fluid overloaded we will check an echo. Continue with oxygen titrated to maintain SPO2 greater than 92%. We will check a BNP No wheezing noted - Time Spent with Patient Total time spent is greater than 50% in coordination of care (as documented) at patient's floor/unit and/or counseling patient: Internal Medicine: Result - Labs CBC & Chem 7: 04/05/18 13:05 04/05/18 13:05 Labs: Short CBC 04/05/18 Range/Units 13:05 WBC 7.0 (4.3-11.1) K/mcL Hgb 10.2 L (11.5-15.4) g/dL Hct 32.0 L (35.3-44.9) % Plt Count 267 (140-400) K/mcL Neutrophils # 4.3 (1.6-8.9) K/mcL BMP 04/05/18 13:05 Sodium 136 Potassium 3.5 Chloride 102 Carbon Dioxide 29 BUN 11 Creatinine 0.67 Glucose 137 H Calcium 8.8 - ABG Interpretation ABG results: PT/INR, D-dimer D-Dimer 1289 ng/mLFEU (0-500) H 04/04/18 19:16 - Impressions Impressions Echocardiogram 04/05/18 11:21 Impressions: LVEF 60%. Normal left ventricular diastolic function. Normal right ventricular structure and function. No significant valvular dysfunction. No pulmonary hypertension. Left Ventricular Wall Motion: Rest Echo Findings All wall segments showed normal motion. Findings: Study Quality * Technically adequate exam. ECG Findings * Normal sinus rhythm. Left Ventricle * LVEF 60%. * Normal LV chamber size, wall thickness and function. * Normal left ventricular diastolic function. Right Ventricle * Normal right ventricular structure and function. Left Atrium * Normal left atrial size. Right Atrium * Normal right atrial size. Mitral Valve * Normal mitral valve structure. * No mitral stenosis. * No mitral regurgitation. Aortic Valve * No aortic regurgitation. * Trileaflet aortic valve. * No aortic stenosis. Tricuspid Valve * Tricuspid valve not well visualized. * No tricuspid regurgitation. * Estimated RA pressure is 3 mmHg. Pulmonic Valve * Pulmonic valve is not well visualized. * No pulmonic stenosis. * No pulmonic regurgitation. Pulmonary Artery * Pulmonary artery not well visualized. Aorta * Normally sized aortic root. Pericardium * There is no pericardial effusion present. Interatrial Septum * No evidence of PFO by color Doppler. IVC * Normal IVC dimensions and inspiratory collapse. Consult Discharge Plan - Plan Referrals: Kaur Irving CNP [Family Provider] - Elvira Cole CNP [Advanced Practice Nurse] - 04/11/18 2:45 pm ( Hospital follow up) (1) Chest pain Qualifiers: Chest pain type: intercostal pain Qualified Code(s): R07.82 - Intercostal pain (2) Asthma Qualifiers: Asthma severity: mild Asthma persistence: intermittent Asthma complication type: uncomplicated Qualified Code(s): J45.20 - Mild intermittent asthma, uncomplicated (3) Depression Qualifiers: Depression Type: unspecified Qualified Code(s): F32.9 - Major depressive disorder, single episode, unspecified (7) Anemia Qualifiers: Anemia type: unspecified type Qualified Code(s): D64.9 - Anemia, unspecified
[2018-04-06 12:00] LABS: Adenovirus Not Detected (Not Detect); Bordetella Pertussis Not Detected (Not Detect); Chlamydophila pneumoniae Not Detected (Not Detect); Coronavirus 229E Not Detected (Not Detect); Coronavirus HKU1 Not Detected (Not Detect); Coronavirus NL63 Not Detected (Not Detect); Coronavirus OC43 Not Detected (Not Detect); Human Metapneumovirus Not Detected (Not Detect); Human Rhinovirus/Enterovirus Not Detected (Not Detect); Influenza A Subtype 2009 H1 Not Detected (Not Detect); Influenza A Untypeable Not Detected (Not Detect); Influenza B Not Detected (Not Detect); Mycoplasma pneumoniae Not Detected (Not Detect); Parainfluenza Virus 1 Not Detected (Not Detect); Parainfluenza Virus 2 Not Detected (Not Detect); Parainfluenza Virus 3 Not Detected (Not Detect); Parainfluenza Virus 4 Not Detected (Not Detect); Respiratory Syncytial Virus Not Detected (Not Detect)
[2018-04-07 05:14] LABS: Basophils % 0.2 %; Hematocrit 31.7 % (35.3-44.9); Hemoglobin 10.1 g/dL (11.5-15.4); Immature Granulocytes % 0.2 % (0-4); Lymphocytes # 1.2 K/mcL (0.6-4.6); Lymphocytes % 23.9 %; Mean Corpuscular HGB Conc 31.9 g/dL (31.6-35.5); Mean Corpuscular Hemoglobin 25.1 pg (28.0-33.3); Mean Corpuscular Volume 78.7 fL (83.0-100.0); Mean Platelet Volume 9.1 fL (9.4-12.4); Monocytes # 0.4 K/mcL (0.0-1.3); Monocytes % 8.2 %; Neutrophils # 3.4 K/mcL (1.6-8.9); Platelet Count 305 K/mcL (140-400); Red Blood Count 4.03 M/mcL (3.82-4.97); Red Cell Distribution Width 14.9 % (11.5-14.5); Segmented Neutrophils % 67.5 %
[2018-04-07] MEDS: *HR* Heparin 5,000 UNIT/ML VIAL SQ SCH ×2 (06:14→17:45)
[2018-04-07 07:20] LABS: BUN/Creatinine Ratio 26 (6-26); Blood Urea Nitrogen 16 mg/dL (6-20); Calcium 9.1 mg/dL (8.6-10.3); Carbon Dioxide 24 mEq/L (23-29); Chloride 104 mEq/L (98-107); Glucose 188 mg/dL (70-105); Osmolality,Calculated 290 (280-300); Potassium 4.4 mEq/L (3.5-5.1); Sodium 137 mEq/L (136-145); eGFR For Non-African Americans > 60 (> 60)
[2018-04-07] MEDS: Loratadine 10 MG TABLET PO SCH (09:52)
--- NOTE | 2018-04-07 09:56 | Internal Med Progress Note ---
Hospitalist Progress Note - Encounter Date of Encounter: 04/07/18 Time of Encounter: 09:56 - Subjective Interval History: She has seen and examined at bedside. She feels somewhat better. Cont to depend on 2 L of O2 will attempt to titrate - Exam Vitals: Temp Pulse Resp BP Pulse Ox 97.6 F 61 16 126/74 98 04/07/18 07:35 04/07/18 07:35 04/07/18 07:35 04/07/18 07:35 04/07/18 09:00 Exam: Constitutional Constitutional: weight loss (reported 30 pound lose since last year), no chills , no fever(s), no night sweats - EENT Eyes: no change in vision, no discharge, no pain, no photophobia Ears: no ear discharge, no ear pain, no tinnitus Nose, mouth and throat: no dysphagia, no nasal discharge, no neck pain, no sore throat - Cardiovascular Cardiovascular ROS IM: no chest pain, no diaphoresis, no dyspnea, no lightheadedness, no palpitations, no syncope - Respiratory Respiratory: no cough lung sounds clear , no dyspnea, no wheezing, no excessive phlegm production - Gastrointestinal Gastrointestinal: abdominal pain, nausea, vomiting, no diarrhea, no hematemesis , no hematochezia, no melena - Musculoskeletal Musculoskeletal ROS IM: no numbness, no tingling - Integumentary Integumentary IM: no rash, no unusual bruising - Neurological Neurological ROS: no confusion, no convulsions, no focal weakness, no numbness, no tingling, no tremor(s) - Hematologic/Lymphatic Hematologic/Lymphatic: no easy bruising - Assessment and Plan (1) Pneumonia Current Visit: Yes Status: Acute Assessment and Plan: Patient has been experiencing CP and has hypoxia - VQ scan with no PE- CT of chest wo contrast does show multifocal pneumonia - we cont with bronchodilators cont with O2 to maintain sats > 92%- blood cultures, legionella and strep pneumonia antigen Levaquin- monitor QTC dt on citalopram (2) Respiratory failure with hypoxia Current Visit: Yes Status: Acute Assessment and Plan: Secondary to pneumonia has hx of asthma as well. Cont with O2 support - will need walk test before discharge to see if qualifies for home O2- Apparently the patient does not have insurance- certified social workers in health care consulted and working on establishing oxygen services if needed (3) Chest pain Current Visit: Yes Status: Acute Assessment and Plan: The patient has a HEART score of 1 based on her age. She has no other risk factors, pain has been preent for 4 days which seems to have been part of a viral syndrome now having focused reproducible tenderness on palpation. Her EKG shows no signs suggestive of ischemia. -Will continue NSAIDs. -Troponins are negative 3 -EKG oK CT of chest does show multifocal pneumonia which could be contributing to chest pain (4) Asthma Current Visit: Yes Status: Chronic Assessment and Plan: Lung sounds with faint crackles very faint wheeze Albuterol prn ordered. Has been hypoxic maybe asthma flair will try steroid She is allergic to prednisone- discussed with pharmacy will try low dose decadron- CT chest does show multifocal enema duonebs (5) Depression Current Visit: Yes Status: Chronic Assessment and Plan: Appears stable. Will hold citalopram for now - monitor QTc placed on levaquin (6) DVT prophylaxis Current Visit: Yes Status: Acute Assessment and Plan: Heparin SubQ ordered. (7) Obesity (BMI 30.0-34.9) Current Visit: Yes Status: Chronic Assessment and Plan: Education on therapeutic lifestyle changes given. (8) D-dimer, elevated Current Visit: Yes Status: Acute Assessment and Plan: Unclear why it is elevated. PE has been ruled out based on the VQ scan findings. No clinical signs to suggest LE DVT. It is not a specific test and could be elevated for other reasons. (9) Anemia Current Visit: Yes Status: Chronic Assessment and Plan: Seen to have a low MCV and MCH which is suggestive of iron deficiency. She reports no evidence of landry bleeding- will cont to monitor Hgb stable -Should have outpatient for screening colonoscopy if not already done based on her age. -No bleeding noted (10) Hypoxia Current Visit: Yes Status: Acute Assessment and Plan: Patient requiring oxygen supplementation started dropping to 85% while on room air. VQ scan is negative for PE chest x-ray shows no acute process. She does not appear fluid overloaded Continue with oxygen titrated to maintain SP02 greater than 92% started on decadron -patient is allergic to prednisone CY of chest did show multifocal pneumonia - bronchodilators ATB - Time Spent with Patient Total time spent is greater than 50% in coordination of care (as documented) at patient's floor/unit and/or counseling patient: Internal Medicine: Result - Labs CBC & Chem 7: 04/07/18 04:22 04/07/18 04:22 Labs: Short CBC 04/07/18 Range/Units 04:22 WBC 5.0 (4.3-11.1) K/mcL Hgb 10.1 L (11.5-15.4) g/dL Hct 31.7 L (35.3-44.9) % Plt Count 305 (140-400) K/mcL Neutrophils # 3.4 (1.6-8.9) K/mcL BMP 04/07/18 04:22 Sodium 137 Potassium 4.4 Chloride 104 Carbon Dioxide 24 BUN 16 Creatinine 0.62 Glucose 188 H Calcium 9.1 - ABG Interpretation ABG results: PT/INR, D-dimer D-Dimer 1289 ng/mLFEU (0-500) H 04/04/18 19:16 Consult Discharge Plan - Plan Referrals: Kaur Irving CNP [Family Provider] - Elvira Cole CNP [Advanced Practice Nurse] - 04/11/18 2:45 pm ( Hospital follow up) (1) Pneumonia Qualifiers: Pneumonia type: due to unspecified organism (2) Respiratory failure with hypoxia Qualifiers: Chronicity: acute Qualified Code(s): J96.01 - Acute respiratory failure with hypoxia (3) Chest pain Qualifiers: Chest pain type: intercostal pain Qualified Code(s): R07.82 - Intercostal pain (4) Asthma Qualifiers: Asthma severity: mild Asthma persistence: intermittent Asthma complication type: uncomplicated Qualified Code(s): J45.20 - Mild intermittent asthma, uncomplicated (5) Depression Qualifiers: Depression Type: unspecified Qualified Code(s): F32.9 - Major depressive disorder, single episode, unspecified (9) Anemia Qualifiers: Anemia type: unspecified type Qualified Code(s): D64.9 - Anemia, unspecified
[2018-04-07] MEDS: Ipratropium/Albuterol Neb 3 ML IH SCH ×2 (16:24→22:20)
[2018-04-08] MEDS: Ipratropium/Albuterol Neb 3 ML IH SCH ×4 (03:22→22:28)
[2018-04-08 05:55] LABS: Basophils % 0.3 %; Eosinophils % 0.3 %; Hematocrit 31.4 % (35.3-44.9); Hemoglobin 9.8 g/dL (11.5-15.4); Immature Granulocytes % 0.4 % (0-4); Lymphocytes # 1.9 K/mcL (0.6-4.6); Lymphocytes % 24.9 %; Mean Corpuscular HGB Conc 31.2 g/dL (31.6-35.5); Mean Corpuscular Hemoglobin 24.5 pg (28.0-33.3); Mean Corpuscular Volume 78.5 fL (83.0-100.0); Monocytes # 0.8 K/mcL (0.0-1.3); Monocytes % 11.1 %; Neutrophils # 4.7 K/mcL (1.6-8.9); Platelet Count 367 K/mcL (140-400)
[2018-04-08] MEDS: *HR* Heparin 5,000 UNIT/ML VIAL SQ SCH ×2 (06:09→17:09)
[2018-04-08 06:15] LABS: BUN/Creatinine Ratio 32 (6-26); Blood Urea Nitrogen 18 mg/dL (6-20); Calcium 9.2 mg/dL (8.6-10.3); Carbon Dioxide 28 mEq/L (23-29); Chloride 103 mEq/L (98-107); Glucose 134 mg/dL (70-105); Osmolality,Calculated 290 (280-300); Potassium 4.2 mEq/L (3.5-5.1); Sodium 138 mEq/L (136-145); eGFR For Non-African Americans > 60 (> 60)
[2018-04-08] MEDS: Loratadine 10 MG TABLET PO SCH (09:24)
--- NOTE | 2018-04-08 09:48 | Internal Med Progress Note ---
Hospitalist Progress Note - Encounter Date of Encounter: 04/08/18 Time of Encounter: 09:48 - Subjective Interval History: She has seen and examined at bedside. Cont to depend on 2 L of O2 will attempt to titrate - Exam Vitals: Temp Pulse Resp BP Pulse Ox 97.7 F 72 16 120/79 99 04/08/18 07:45 04/08/18 07:45 04/08/18 07:45 04/08/18 07:45 04/08/18 07:45 Exam: Constitutional Constitutional: weight loss (reported 30 pound lose since last year), no chills , no fever(s), no night sweats - EENT Eyes: no change in vision, no discharge, no pain, no photophobia Ears: no ear discharge, no ear pain, no tinnitus Nose, mouth and throat: no dysphagia, no nasal discharge, no neck pain, no sore throat - Cardiovascular Cardiovascular ROS IM: no chest pain, no diaphoresis, no dyspnea, no lightheadedness, no palpitations, no syncope - Respiratory Respiratory: no cough lung sounds crackles in bases , no dyspnea, no wheezing , no excessive phlegm production - Gastrointestinal Gastrointestinal: abdominal pain, nausea, vomiting, no diarrhea, no hematemesis , no hematochezia, no melena - Musculoskeletal Musculoskeletal ROS IM: no numbness, no tingling - Integumentary Integumentary IM: no rash, no unusual bruising - Neurological Neurological ROS: no confusion, no convulsions, no focal weakness, no numbness, no tingling, no tremor(s) - Hematologic/Lymphatic Hematologic/Lymphatic: no easy bruising - Assessment and Plan (1) Pneumonia Current Visit: Yes Status: Acute Assessment and Plan: Patient has been experiencing CP and has hypoxia - VQ scan with no PE- CT of chest wo contrast does show multifocal pneumonia - we cont with bronchodilators cont with O2 to maintain sats > 92%- blood cultures, legionella and strep pneumonia antigen Rocephin and azithromycin - after speaking with pharmacy we will not give levaquin and cont with zithromax and Rocephin - dt patient allergies and currently on citlopram. will resume (2) Respiratory failure with hypoxia Current Visit: Yes Status: Acute Assessment and Plan: Secondary to pneumonia has hx of asthma as well. Cont with O2 support - During walking nursing report sats drop down to 89 -86 % Apparently the patient does not have insurance- catering convention services manager consulted and working on establishing oxygen services if needed (3) Chest pain Current Visit: Yes Status: Acute Assessment and Plan: The patient has a HEART score of 1 based on her age. She has no other risk factors, pain has been preent for 4 days which seems to have been part of a viral syndrome now having focused reproducible tenderness on palpation. Her EKG shows no signs suggestive of ischemia. -Will continue NSAIDs. -Troponins are negative 3 -EKG oK CT of chest does show multifocal pneumonia which could be contributing to chest pain (4) Asthma Current Visit: Yes Status: Chronic Assessment and Plan: Lung sounds with faint crackles very faint wheeze Albuterol prn ordered. Has been hypoxic maybe asthma flair will try steroid She is allergic to prednisone- discussed with pharmacy will try low dose decadron- CT chest does show multifocal edema duonebs (5) Depression Current Visit: Yes Status: Chronic Assessment and Plan: Appears stable. Cont citolopram stop Levaquin (6) DVT prophylaxis Current Visit: Yes Status: Acute Assessment and Plan: Heparin SubQ ordered. (7) Obesity (BMI 30.0-34.9) Current Visit: Yes Status: Chronic Assessment and Plan: Education on therapeutic lifestyle changes given. (8) D-dimer, elevated Current Visit: Yes Status: Acute Assessment and Plan: Unclear why it is elevated. PE has been ruled out based on the VQ scan findings. No clinical signs to suggest LE DVT. It is not a specific test and could be elevated for other reasons. (9) Anemia Current Visit: Yes Status: Chronic Assessment and Plan: Seen to have a low MCV and MCH which is suggestive of iron deficiency. She reports no evidence of landry bleeding- will cont to monitor Hgb stable -Should have outpatient for screening colonoscopy if not already done based on her age. -No bleeding noted (10) Hypoxia Current Visit: Yes Status: Acute Assessment and Plan: Patient requiring oxygen supplementation started dropping to 86% while on room air.-walking. VQ scan is negative for PE chest x-ray shows no acute process. She does not appear fluid overloaded Continue with oxygen titrated to maintain SP02 greater than 92% started on decadron -patient is allergic to prednisone CT of chest did show multifocal pneumonia - bronchodilators ATB - Time Spent with Patient Total time spent is greater than 50% in coordination of care (as documented) at patient's floor/unit and/or counseling patient: Internal Medicine: Result - Labs CBC & Chem 7: 04/08/18 05:02 04/08/18 05:02 Labs: Short CBC 04/08/18 Range/Units 05:02 WBC 7.5 (4.3-11.1) K/mcL Hgb 9.8 L (11.5-15.4) g/dL Hct 31.4 L (35.3-44.9) % Plt Count 367 (140-400) K/mcL Neutrophils # 4.7 (1.6-8.9) K/mcL BMP 04/08/18 05:02 Sodium 138 Potassium 4.2 Chloride 103 Carbon Dioxide 28 BUN 18 Creatinine 0.57 L Glucose 134 H Calcium 9.2 - ABG Interpretation ABG results: PT/INR, D-dimer D-Dimer 1289 ng/mLFEU (0-500) H 04/04/18 19:16 - Impressions Impressions Chest CT 04/07/18 11:00 IMPRESSION: Multifocal patchy airspace disease greater on the left, left upper lobe. Multifocal pneumonia is considered most likely. Bronchiectasis and bronchial wall thickening greater left lower lobe, likely pre-existing and/or chronic. D/ / Galo Mojica MD / Galo Mojica MD Interpreting Provider: Galo Mojica MD Consult Discharge Plan - Plan Referrals: Kaur Irving CNP [Family Provider] - Elvira Cole CNP [Advanced Practice Nurse] - 04/11/18 2:45 pm ( Hospital follow up) (1) Pneumonia Qualifiers: Pneumonia type: due to unspecified organism (2) Respiratory failure with hypoxia Qualifiers: Chronicity: acute Qualified Code(s): J96.01 - Acute respiratory failure with hypoxia (3) Chest pain Qualifiers: Chest pain type: intercostal pain Qualified Code(s): R07.82 - Intercostal pain (4) Asthma Qualifiers: Asthma severity: mild Asthma persistence: intermittent Asthma complication type: uncomplicated Qualified Code(s): J45.20 - Mild intermittent asthma, uncomplicated (5) Depression Qualifiers: Depression Type: unspecified Qualified Code(s): F32.9 - Major depressive disorder, single episode, unspecified (9) Anemia Qualifiers: Anemia type: unspecified type Qualified Code(s): D64.9 - Anemia, unspecified
[2018-04-08] MEDS: cefTRIAXone 1,000 MG in Water for inj. (sterile) 20 ML 10 ML IVP SCH (11:29)
[2018-04-08] MEDS: Azithromycin 500 MG in D5% in Water 250 ML IVPB SCH (11:35)
[2018-04-09 04:33] LABS: Basophils % 0.3 %; Eosinophils # 0.1 K/mcL (0.0-0.6); Eosinophils % 0.9 %; Hematocrit 32.2 % (35.3-44.9); Hemoglobin 10.1 g/dL (11.5-15.4); Immature Granulocytes % 0.4 % (0-4); Immature Platelets 1.3 % (1.1-6.1); Lymphocytes # 2.5 K/mcL (0.6-4.6); Lymphocytes % 32.9 %; Mean Corpuscular HGB Conc 31.4 g/dL (31.6-35.5); Mean Corpuscular Hemoglobin 24.6 pg (28.0-33.3); Mean Corpuscular Volume 78.5 fL (83.0-100.0); Monocytes # 0.7 K/mcL (0.0-1.3); Monocytes % 9.1 %; Neutrophils # 4.2 K/mcL (1.6-8.9); Platelet Count 414 K/mcL (140-400); Red Cell Distribution Width 15.2 % (11.5-14.5); Segmented Neutrophils % 56.4 %
[2018-04-09 04:50] LABS: BUN/Creatinine Ratio 29 (6-26); Blood Urea Nitrogen 16 mg/dL (6-20); Calcium 9.2 mg/dL (8.6-10.3); Carbon Dioxide 31 mEq/L (23-29); Chloride 99 mEq/L (98-107); Glucose 140 mg/dL (70-105); Osmolality,Calculated 285 (280-300); Potassium 4.3 mEq/L (3.5-5.1); Sodium 136 mEq/L (136-145); eGFR For Non-African Americans > 60 (> 60)
[2018-04-09] MEDS: Ipratropium/Albuterol Neb 3 ML IH SCH ×4 (05:08→22:42)
[2018-04-09] MEDS: *HR* Heparin 5,000 UNIT/ML VIAL SQ SCH ×2 (06:22→18:18)
[2018-04-09] MEDS: cefTRIAXone 1,000 MG in Water for inj. (sterile) 20 ML 10 ML IVP SCH (08:54)
[2018-04-09] MEDS: Loratadine 10 MG TABLET PO SCH (08:54)
[2018-04-09] MEDS: Azithromycin 500 MG in D5% in Water 250 ML IVPB SCH (09:03)
--- NOTE | 2018-04-09 11:43 | Internal Med Progress Note ---
Hospitalist Progress Note - Encounter Date of Encounter: 04/09/18 Time of Encounter: 11:41 - Subjective Interval History: She has seen and examined at bedside. Cont to depend on 2 L of O2 will attempt to titrate - Exam Vitals: Temp Pulse Resp BP Pulse Ox 97.5 F L 72 16 120/83 98 04/09/18 08:23 04/09/18 08:23 04/09/18 09:53 04/09/18 08:23 04/09/18 09:53 Exam: Constitutional Constitutional: weight loss (reported 30 pound lose since last year), no chills , no fever(s), no night sweats - EENT Eyes: no change in vision, no discharge, no pain, no photophobia Ears: no ear discharge, no ear pain, no tinnitus Nose, mouth and throat: no dysphagia, no nasal discharge, no neck pain, no sore throat - Cardiovascular Cardiovascular ROS IM: no chest pain, no diaphoresis, no dyspnea, no lightheadedness, no palpitations, no syncope - Respiratory Respiratory: no cough lung sounds clear , no dyspnea, no wheezing, no excessive phlegm production - Gastrointestinal Gastrointestinal: abdominal pain, nausea, vomiting, no diarrhea, no hematemesis , no hematochezia, no melena - Musculoskeletal Musculoskeletal ROS IM: no numbness, no tingling - Integumentary Integumentary IM: no rash, no unusual bruising - Neurological Neurological ROS: no confusion, no convulsions, no focal weakness, no numbness, no tingling, no tremor(s) - Hematologic/Lymphatic Hematologic/Lymphatic: no easy bruising - Assessment and Plan (1) Pneumonia Current Visit: Yes Status: Acute Assessment and Plan: Patient has been experiencing CP and has hypoxia - VQ scan with no PE- CT of chest wo contrast does show multifocal pneumonia - we cont with bronchodilators cont with O2 to maintain sats > 92%- we shabana attempt to wean off blood cultures, legionella and strep pneumonia antigen Rocephin and azithromycin - after speaking with pharmacy we will not give levaquin and cont with zithromax and Rocephin - dt patient allergies and currently on citlopram. will resume (2) Respiratory failure with hypoxia Current Visit: Yes Status: Acute Assessment and Plan: Secondary to pneumonia has hx of asthma as well. Cont with O2 support - During walking nursing report sats drop down to 89 -86 % Apparently the patient does not have insurance- family welfare social work professor consulted and working on establishing oxygen services if needed We will wean O2 (3) Chest pain Current Visit: Yes Status: Acute Assessment and Plan: The patient has a HEART score of 1 based on her age. She has no other risk factors, pain has been preent for 4 days which seems to have been part of a viral syndrome now having focused reproducible tenderness on palpation. Her EKG shows no signs suggestive of ischemia. -Will continue NSAIDs. -Troponins are negative 3 -EKG oK CT of chest does show multifocal pneumonia which could be contributing to chest pain (4) Asthma Current Visit: Yes Status: Chronic Assessment and Plan: Lung sounds with faint crackles very faint wheeze Albuterol prn ordered. Has been hypoxic maybe asthma flair will try steroid She is allergic to prednisone- discussed with pharmacy will try low dose decadron- CT chest does show multifocal edema duonebs (5) Depression Current Visit: Yes Status: Chronic Assessment and Plan: Appears stable. Cont citolopram stop Levaquin (6) DVT prophylaxis Current Visit: Yes Status: Acute Assessment and Plan: Heparin SubQ ordered. (7) Obesity (BMI 30.0-34.9) Current Visit: Yes Status: Chronic Assessment and Plan: Education on therapeutic lifestyle changes given. (8) D-dimer, elevated Current Visit: Yes Status: Acute Assessment and Plan: Unclear why it is elevated. PE has been ruled out based on the VQ scan findings. No clinical signs to suggest LE DVT. It is not a specific test and could be elevated for other reasons. (9) Anemia Current Visit: Yes Status: Chronic Assessment and Plan: Seen to have a low MCV and MCH which is suggestive of iron deficiency. She reports no evidence of landry bleeding- will cont to monitor Hgb stable -Should have outpatient for screening colonoscopy if not already done based on her age. -No bleeding noted (10) Hypoxia Current Visit: Yes Status: Acute Assessment and Plan: Patient requiring oxygen supplementation started dropping to 86% while on room air.-walking. VQ scan is negative for PE chest x-ray shows no acute process. She does not appear fluid overloaded Continue with oxygen titrated to maintain SP02 greater than 92% started on decadron -patient is allergic to prednisone CT of chest did show multifocal pneumonia - bronchodilators ATB DVT Prophylaxis: heparin subque - Time Spent with Patient Total time spent is greater than 50% in coordination of care (as documented) at patient's floor/unit and/or counseling patient: Internal Medicine: Result - Labs CBC & Chem 7: 04/09/18 03:36 04/09/18 03:36 Labs: Short CBC 04/09/18 Range/Units 03:36 WBC 7.5 (4.3-11.1) K/mcL Hgb 10.1 L (11.5-15.4) g/dL Hct 32.2 L (35.3-44.9) % Plt Count 414 H (140-400) K/mcL Neutrophils # 4.2 (1.6-8.9) K/mcL BMP 04/09/18 03:36 Sodium 136 Potassium 4.3 Chloride 99 Carbon Dioxide 31 H BUN 16 Creatinine 0.56 L Glucose 140 H Calcium 9.2 - ABG Interpretation ABG results: PT/INR, D-dimer D-Dimer 1289 ng/mLFEU (0-500) H 04/04/18 19:16 Consult Discharge Plan - Plan Referrals: Kaur Irving CNP [Family Provider] - Elvira Cole CNP [Advanced Practice Nurse] - 04/11/18 2:45 pm ( Hospital follow up) (1) Pneumonia Qualifiers: Pneumonia type: due to unspecified organism (2) Respiratory failure with hypoxia Qualifiers: Chronicity: acute Qualified Code(s): J96.01 - Acute respiratory failure with hypoxia (3) Chest pain Qualifiers: Chest pain type: intercostal pain Qualified Code(s): R07.82 - Intercostal pain (4) Asthma Qualifiers: Asthma severity: mild Asthma persistence: intermittent Asthma complication type: uncomplicated Qualified Code(s): J45.20 - Mild intermittent asthma, uncomplicated (5) Depression Qualifiers: Depression Type: unspecified Qualified Code(s): F32.9 - Major depressive disorder, single episode, unspecified (9) Anemia Qualifiers: Anemia type: unspecified type Qualified Code(s): D64.9 - Anemia, unspecified
[2018-04-10] MEDS: Ipratropium/Albuterol Neb 3 ML IH SCH ×2 (04:05→11:31)
[2018-04-10] MEDS: *HR* Heparin 5,000 UNIT/ML VIAL SQ SCH (06:12)
[2018-04-10] MEDS: Loratadine 10 MG TABLET PO SCH (08:07)
[2018-04-10] MEDS: cefTRIAXone 1,000 MG in Water for inj. (sterile) 20 ML 10 ML IVP SCH (08:08)
[2018-04-10] MEDS: Azithromycin 500 MG in D5% in Water 250 ML IVPB SCH (09:39)
[2018-04-10 10:02] LABS: Basophils % 0.4 %; Eosinophils # 0.3 K/mcL (0.0-0.6); Eosinophils % 3.6 %; Hematocrit 34.6 % (35.3-44.9); Hemoglobin 10.7 g/dL (11.5-15.4); Immature Granulocytes % 0.8 % (0-4); Lymphocytes # 2.5 K/mcL (0.6-4.6); Lymphocytes % 31.5 %; Mean Corpuscular HGB Conc 30.9 g/dL (31.6-35.5); Mean Corpuscular Hemoglobin 24.4 pg (28.0-33.3); Mean Corpuscular Volume 78.8 fL (83.0-100.0); Mean Platelet Volume 8.8 fL (9.4-12.4); Monocytes # 0.7 K/mcL (0.0-1.3); Monocytes % 8.4 %; Neutrophils # 4.4 K/mcL (1.6-8.9); Platelet Count 468 K/mcL (140-400); Red Blood Count 4.39 M/mcL (3.82-4.97); Red Cell Distribution Width 15.2 % (11.5-14.5); Segmented Neutrophils % 55.3 %
[2018-04-10 10:37] LABS: BUN/Creatinine Ratio 31 (6-26); Blood Urea Nitrogen 19 mg/dL (6-20); Calcium 9.5 mg/dL (8.6-10.3); Carbon Dioxide 29 mEq/L (23-29); Chloride 97 mEq/L (98-107); Glucose 195 mg/dL (70-105); Osmolality,Calculated 290 (280-300); Potassium 3.7 mEq/L (3.5-5.1); Sodium 136 mEq/L (136-145); eGFR For Non-African Americans > 60 (> 60)
[2018-04-10 11:27] VITALS: BP 119/78
--- NOTE | 2018-04-10 13:37 | Discharge Summary ---
- NOTES TO OUTPATIENT PROVIDER Notes to Outpatient Provider: Patient had cp hypoxia- VQ scan negative CT of chest did show pneumonia - she will cont steroid taper - omnicef Orders not resulted at time of discharge: Pending orders 04/07/18 14:11 Culture,Blood [BC] Routine Date of Encounter: 04/10/18 Time of Encounter: 13:48 - Discharge Diagnosis (1) Pneumonia Priority: Primary Status: Acute Qualifiers: Pneumonia type: due to unspecified organism Laterality: bilateral Lung location: unspecified part of lung Qualified Code(s): J18.9 - Pneumonia, unspecified organism (2) Respiratory failure with hypoxia Priority: Secondary Status: Acute Qualifiers: Chronicity: acute Qualified Code(s): J96.01 - Acute respiratory failure with hypoxia (3) Chest pain Priority: Secondary Status: Acute Qualifiers: Chest pain type: intercostal pain Qualified Code(s): R07.82 - Intercostal pain (4) Asthma Priority: Secondary Status: Chronic Qualifiers: Asthma severity: mild Asthma persistence: intermittent Asthma complication type: uncomplicated Qualified Code(s): J45.20 - Mild intermittent asthma, uncomplicated (5) Depression Priority: Secondary Status: Chronic Qualifiers: Depression Type: unspecified Qualified Code(s): F32.9 - Major depressive disorder, single episode, unspecified (6) Obesity (BMI 30.0-34.9) Priority: Secondary Status: Chronic (7) D-dimer, elevated Priority: Secondary Status: Acute (8) Anemia Priority: Secondary Status: Chronic Qualifiers: Anemia type: unspecified type Qualified Code(s): D64.9 - Anemia, unspecified (9) Hypoxia Priority: Secondary Status: Acute Hospital course: Ms. Kilpatrick is a 52 year old female asthma chronic back pain anxiety- presented with L sided chest pain she did have an elevate d dimer VQ scan completed dt allergy to IVP dye. Lab work unremarkable NO ST T wave abnormality NO fever She was ruled out for ACS- she did have hypoxia- she was placed on decadron dt allergy to prednisone CT of chest did show multifocal pneumonia placed on Rocephin and azithromycin intial Qtc 399 citlopram held - Her resp state improved and she was weaned off O2 . Recheck of qtc did show increase of 425- Discussed with pharmacist Federico- will stop azitromycin - negative legionelle negative strep pneumonia - will send home on omnicef and 2 days of steroids- follow up with PCP I discussed with patient she verbalized understanding She is hemodynamically stable and ready for discharge Discharge discussed with: patient - Time Spent with Patient Total time spent providing and/or coordinating discharge services: - Discharge Medications Prescriptions: Cefdinir [Omnicef] 300 mg PO DAILY #7 capsule Cetirizine HCl [Zyrtec] 10 mg PO DAILY #30 tablet Citalopram [CeleXA] 20 mg PO DAILY #30 tablet Dexamethasone [Decadron] 0.5 mg PO DAILY #2 tablet Naproxen [Naprosyn] 500 mg PO BID #30 tablet Omeprazole [PriLOSEC] 20 mg PO DAILY #30 capsule. Home Medications: Cefdinir [Omnicef] 300 mg PO DAILY #7 capsule 04/10/18 [Rx] Cetirizine HCl [Zyrtec] 10 mg PO DAILY #30 tablet 04/10/18 [Rx] Citalopram [CeleXA] 20 mg PO DAILY #30 tablet 04/10/18 [Rx] Dexamethasone [Decadron] 0.5 mg PO DAILY #2 tablet 04/10/18 [Rx] Naproxen [Naprosyn] 500 mg PO BID #30 tablet 04/10/18 [Rx] Omeprazole [PriLOSEC] 20 mg PO DAILY #30 capsule. 04/10/18 [Rx] Allergies/Adverse Reactions: 3 Allergy/AdvReac Type Severity Reaction Status Date / Time acetaminophen [From Percocet] Allergy Nausea Verified 12/15/17 14:35 codeine Allergy Rash Verified 12/15/17 14:35 doxycycline Allergy Rash Verified 12/15/17 14:35 hydrocodone [From Vicodin] Allergy Nausea Verified 12/15/17 14:35 Oxycodone [From Percocet] Allergy Nausea Verified 12/15/17 14:35 Penicillins [PCN] Allergy Rash Verified 12/15/17 14:35 prednisone Allergy Hives Verified 12/15/17 14:35 red dye Allergy Redness of Verified 12/15/17 14:35 Skin Sulfa (Sulfonamide Allergy Rash Verified 12/15/17 14:35 Antibiotics) Iodinated Contrast- Oral and AdvReac Unconscious Verified 04/04/18 22:03 IV Dye Date of admission: 04/05/18 00:05 Primary care physician: PCP NONE Discharging clinician: Cheyenne Vásquez Anticipated date of discharge: 04/10/18 - Constitutional Vitals: Temp Pulse Resp BP Pulse Ox 97.8 F 92 18 119/78 94 04/10/18 11:26 04/10/18 11:26 04/10/18 11:32 04/10/18 11:26 04/10/18 11:32 General appearance: Present: A&O X 3 Exam: see above - Head Head exam: Present: atraumatic, normocephalic - Eye Eye exam: Present: PERRL, conjuntiva pink, sclera anicteric Pupils: Present: PERRL - Neck Neck exam general surgery: Present: supple, trachea midline. Absent: lymphadenopathy - Respiratory Respiratory exam: Present: CTAB. Absent: accessory muscle use, rales, rhonchi, wheezes - Cardiovascular Cardiovascular exam: Present: RRR, +S1, +S2. Absent: diastolic murmur, gallop, rubs, systolic murmur - GI/Abdominal GI/Abdominal exam: Present: normal bowel sounds, soft, no peritoneal signs. Absent: distended, tenderness - Extremities Exam Extremities exam: Present: warm, radial pulses palpable and symmetrical. Absent : calf tenderness, cyanotic, pedal edema - Neurological Exam Neurological exam: Present: CN II-XII intact, oriented X3, no focal deficits. Absent: pronater drift, facial droop, speech deficit - Skin Skin exam: Present: dry, intact - Patient Status Disposition: Home, Self-Care Condition: Fair Functional capacity at discharge: independent ambulation Overall status at discharge: patient is back to baseline - Discharge Instructions Instructions: Cefdinir (By mouth), Chest Pain (DC), Pneumonia (DC), Pneumonia ( GEN) Follow Up With: Kaur Irving CNP [Family Provider] - Elvira Cole CNP [Advanced Practice Nurse] - 04/11/18 2:45 pm ( Hospital follow up) - Diet and Activity Activity: resume usual activities as tolerated Diet: advance to your usual diet
== END 2018-04-10 15:53 | disposition home or self-care (01) ==
LOC: 3BNU 17:58 → EMEROOARM 17:58 → 3BNU 04-05 00:44
PROVIDERS: ADMIT Family Medicine; ATTEND Family Medicine